=== PATIENT | male | born 2000 | race Caucasian/White ===

== ENCOUNTER 2023-12-11 11:50 | Emergency (ER) | payer OTHER ==
[~2023-12-11] VITALS: Ht 165.1 cm; Wt 73.5 kg
[2023-12-11 12:14] VITALS: BP 130/84; PULSE 74; RESP 18; TEMP 97.3; O2SAT 99
[2023-12-11] MEDS ORDERED: IBUP-2213 PO (12:37)
[2023-12-11] MEDS ORDERED: BACI-418 TP (12:37)
[2023-12-11] MEDS: LIDOCAINE MPF 1% 10 MG/ML VIAL INJ ONE (12:51)
[2023-12-11] MEDS: BACITRACIN OINT 500 UNITS/GM PKT TP ONE (13:15)
[2023-12-11 13:24] VITALS: BP 126/83; PULSE 75; RESP 16; TEMP 98; O2SAT 99
== END 2023-12-11 13:27 | disposition home or self-care (01) ==
LOC: MED 11:50
DX: S61.217A Laceration without foreign body of left little finger without damage to nail, initial encounter (principal); Z79.1 Long term (current) use of non-steroidal anti-inflammatories (NSAID); Z79.899 Other long term (current) drug therapy; W26.0XXA Contact with knife, initial encounter; Y93.89 Activity, other specified; Y92.89 Other specified places as the place of occurrence of the external cause; Y99.8 Other external cause status
CPT/HCPCS: 12002; 90471; 90715; 99283; J2001

== ENCOUNTER 2023-12-13 11:22 | Emergency (ER) | payer OTHER ==
[~2023-12-13] VITALS: Ht 165.1 cm; Wt 73.5 kg
[~2023-12-13 11:22] MED LIST: BACI-418 TP; IBUP-2213 PO
[2023-12-13 11:27] VITALS: BP 117/51; PULSE 58; RESP 16; TEMP 98.4; O2SAT 99
[2023-12-13 11:48] VITALS: BP 117/51; PULSE 58; RESP 16; TEMP 98.4; O2SAT 99
== END 2023-12-13 11:48 | disposition home or self-care (01) ==
LOC: MED 11:22
DX: S61.217D Laceration without foreign body of left little finger without damage to nail, subsequent encounter (principal); Z48.00 Encounter for change or removal of nonsurgical wound dressing; Z79.899 Other long term (current) drug therapy; X58.XXXD Exposure to other specified factors, subsequent encounter
CPT/HCPCS: 99281

== ENCOUNTER 2023-12-18 11:24 | Emergency (ER) | payer OTHER ==
[~2023-12-18] VITALS: Ht 165.1 cm; Wt 72.6 kg
[2023-12-18 11:59] VITALS: BP 138/79; PULSE 57; RESP 16; TEMP 97.7; O2SAT 100
== END 2023-12-18 12:49 | disposition home or self-care (01) ==
LOC: MED 11:24
DX: S61.217D Laceration without foreign body of left little finger without damage to nail, subsequent encounter (principal); Z48.00 Encounter for change or removal of nonsurgical wound dressing; Z79.1 Long term (current) use of non-steroidal anti-inflammatories (NSAID); Z79.899 Other long term (current) drug therapy; X58.XXXD Exposure to other specified factors, subsequent encounter
CPT/HCPCS: 99281